=== PATIENT | male | born 1975 | race Caucasian/White ===

== ENCOUNTER 2024-10-07 07:30 | Day surgery (SDC) | payer OTHER, SELFPAY ==
[2024-10-07] MEDS: LIDOCAINE 2% JELLY 10 ML UR (08:05)
[2024-10-07 08:12] VITALS: BP 153/77; BP 160/74; PULSE 62; PULSE 63; O2SAT 98
--- NOTE | 2024-10-07 08:21 | PM.URSON ---
Urology Surgery Operative Note Operative Note Procedure Date: 10/07/24 Time Out Performed: yes Pre-op Diagnosis: Microscopic hematuria. BPH with LUTS Post-op Diagnosis: other (Prostatitis) Procedures performed: 1. Cystoscopy. Anesthesia: local Primary Surgeon: Earl Parra Complications: None Estimated blood loss (mL): 0 Findings: 1. Friable painful prostate. 2. Bilobar obstruction of the prostate. 3. No bladder tumors. 4. Moderate to high-grade trabeculation and small diverticuli. Specimens: None Indications for Procedures: This gentleman was found to have microscopic hematuria. He also has urinary urgency, incomplete emptying and intermittency. He now presents for cystoscopy. Detailed description of Procedure: The patient was kept on the gurney bed and brought into the endoscopy suite. He was in the supine position. Timeout was done by everyone in the room. Genitalia were sterilely prepped and draped in the usual fashion. 2% lidocaine gel was passed per urethra. I started by passing a flexible cystoscope per urethra and into the bladder. The anterior urethra was normal. Prostatic urethra showed bilobar obstruction. It was exquisitely painful for the patient. He actually screamed out and stated that it burned severely. The prostate was friable. Panendoscopy in the bladder revealed no evidence of tumors. There was moderate to high-grade trabeculation with small diverticuli noted. The scope was retroverted upon itself and no new findings were noted. The scope was then removed. He was then discharged to home. The plan is that he will start Levaquin 500 mg daily #14. He will also start alfuzosin 10 mg daily with refills. Follow-up will be in 3 months for reevaluation.
== END 2024-10-07 08:28 | disposition home or self-care (01) ==
PROVIDERS: PCP Family Medicine; Visit Provider Urology
PROC: (CPT 52000; principal; 2024-10-07 08:00)
DX: R31.29 Other microscopic hematuria (principal); I10 Essential (primary) hypertension; E78.5 Hyperlipidemia, unspecified; M10.9 Gout, unspecified; E11.9 Type 2 diabetes mellitus without complications; I25.10 Atherosclerotic heart disease of native coronary artery without angina pectoris; N40.1 Benign prostatic hyperplasia with lower urinary tract symptoms; N32.89 Other specified disorders of bladder; R39.15 Urgency of urination; R33.8 Other retention of urine; N32.3 Diverticulum of bladder; Z87.891 Personal history of nicotine dependence; Z79.84 Long term (current) use of oral hypoglycemic drugs
CPT/HCPCS: 52000